=== PATIENT | female | born 1950 | race Caucasian/White ===

== ENCOUNTER 2017-01-27 05:38 | Inpatient (IN) | payer OTHER ==
[~2017-01-27] VITALS: Ht 160 cm; Wt 74.2 kg
[~2017-01-27 05:38] MED LIST: AMLODIPINE-BEN1 EACH; ASPIRIN81 M2 PO; BENICAR40 MG; BYSTOLIC20 MG PO; CALCITRIOL0.25 MCG PO; CALCIUM 500 +1 EACH PO; DICLOFENAC SOD100 MG; DIOVAN HCT 31 TABLE1 PO; FENOFIBRATE160 M1 PO; FLONASE16 G1 BOTH NARES; HYDROCHLOROTHIA25 MG PO; LEVOTHYROXINE125 MCG PO; LEVOTHYROXINE150 MCG; LOSARTAN POTAS100 MG PO; NITROSTAT0.4 MG SL; NORCO 5/3251 TABLET PO; NORVASC5 MG PO; PRAMIPEXOLE0.125 MG; PREMARIN0.3 MG PO; PREMARIN0.625 MG; TRICOR145 MG; TUMS500 MG PO; TYLENOL ARTHRI650 MG PO; VOLTAREN75 MG PO; ZETIA10 MG
[2017-01-27 06:20] VITALS: BP 164/70
[2017-01-27 16:30] VITALS: BP 132/62
[2017-01-27 19:39] VITALS: BP 115/59
[2017-01-28 00:36] VITALS: BP 116/55
[2017-01-28 08:17] VITALS: BP 121/60
[2017-01-28 10:59] LABS: HEMATOCRIT 28.3 % (36.0-46.0)
[2017-01-28] MEDS ORDERED: IRON325 MG PO (11:02)
[2017-01-28 11:10] LABS: ANION GAP 9 MEQ/L (2-14); CHLORIDE 100 MEQ/L (99-109); GFR ESTIMATE (CALCULATED) > 59 mL/min/; GLUCOSE 116 mg/dL (70-99); POTASSIUM 3.4 MEQ/L (3.7-5.4); SAMPLE HEMOLYSIS CHECK 0; SAMPLE ICTERIC CHECK 0; SAMPLE LIPEMIA CHECK 0; SODIUM 141 MEQ/L (136-147); UREA NITROGEN (BUN) 19 mg/dL (9-23)
[2017-01-28 12:30] VITALS: BP 110/53
[2017-01-28 16:00] VITALS: BP 141/62
[2017-01-28 19:24] VITALS: BP 131/60
[2017-01-28 23:30] VITALS: BP 142/63
[2017-01-29 08:37] VITALS: BP 123/60
[2017-01-29] MEDS ORDERED: TYLENOL REGULA325 MG PO (09:06)
[2017-01-29] MEDS ORDERED: OXYCODONE HCL5 MG PO (09:07)
[2017-01-29] MEDS ORDERED: XARELTO10 MG PO (09:07)
[2017-01-29 11:05] LABS: HEMATOCRIT 29.4 % (36.0-46.0); MCV 88.6 FL (83-99)
== END 2017-01-29 14:29 | disposition home health service (06) | DRG 470 ==
LOC: 2SOUTH 05:38 → 3EAST 05:38 → 2SOUTH 07:55 → 3EAST 16:21
PROVIDERS: Physician Assistant
PROC: 0SRB04A Replacement of Left Hip Joint with Ceramic on Polyethylene Synthetic Substitute, Uncemented, Open Approach (ICD-10-PCS; principal; 2017-01-27)
DX: M16.12 Unilateral primary osteoarthritis, left hip (principal); J30.2 Other seasonal allergic rhinitis; G47.33 Obstructive sleep apnea (adult) (pediatric); I10 Essential (primary) hypertension; E78.2 Mixed hyperlipidemia; Z91.19 Patient's noncompliance with other medical treatment and regimen; E89.0 Postprocedural hypothyroidism; E55.9 Vitamin D deficiency, unspecified; I35.0 Nonrheumatic aortic (valve) stenosis; I36.1 Nonrheumatic tricuspid (valve) insufficiency; I34.0 Nonrheumatic mitral (valve) insufficiency; M54.32 Sciatica, left side; M54.31 Sciatica, right side; G25.81 Restless legs syndrome; Z87.891 Personal history of nicotine dependence; Z91.040 Latex allergy status; Z91.012 Allergy to eggs; Z88.2 Allergy status to sulfonamides; Z91.013 Allergy to seafood; Z91.041 Radiographic dye allergy status; Z82.49 Family history of ischemic heart disease and other diseases of the circulatory system; Z83.3 Family history of diabetes mellitus; Z82.61 Family history of arthritis; Z80.9 Family history of malignant neoplasm, unspecified
CPT/HCPCS: 80048; 85014; 85018; 97530 GP; J0131; J0690; J1100; J1885; J2250; J2405; J7050; J7120; S0020

== ENCOUNTER 2018-05-31 22:10 | Inpatient (IN) | payer OTHER ==
[~2018-05-31] VITALS: Ht 160 cm; Wt 68.0 kg
[~2018-05-31 22:10] MED LIST changes: +IRON325 MG PO; +OXYCODONE HCL5 MG PO; +TYLENOL REGULA325 MG PO; +WOMEN'S DAILY1 EAC5 PO; +XARELTO10 MG PO; -ZETIA10 MG; +ZETIA10 MG PO
[2018-06-01 06:44] VITALS: BP 178/101
[2018-06-01 11:48] VITALS: BP 151/64
[2018-06-01 15:46] VITALS: BP 114/57
[2018-06-01 20:11] VITALS: BP 133/63
[2018-06-02] VITALS: BP 126/61
[2018-06-02 04:10] VITALS: BP 129/62
[2018-06-02 06:55] LABS: CHLORIDE 101 MEQ/L (99-109); CREATININE 0.9 MG/DL (0.6-1.3); GFR ESTIMATE (CALCULATED) > 59 mL/min/; GLUCOSE 104 mg/dL (70-99); POTASSIUM 4.1 MEQ/L (3.7-5.4); SODIUM 140 MEQ/L (136-147); UREA NITROGEN (BUN) 16 mg/dL (9-23)
[2018-06-02 08:00] VITALS: BP 116/57
[2018-06-02 12:10] VITALS: BP 146/65
[2018-06-02 15:55] VITALS: BP 134/61
[2018-06-02 20:20] VITALS: BP 158/70
[2018-06-03 00:24] VITALS: BP 159/65
[2018-06-03 04:05] VITALS: BP 146/22
[2018-06-03 07:47] VITALS: BP 132/61
[2018-06-03] MEDS ORDERED: BENADRYL25 MG PO (10:07)
[2018-06-03] MEDS ORDERED: SENNA PLUS TAB1 EACH PO (10:10)
[2018-06-03] MEDS ORDERED: OXYCODONE HCL5 MG PO (10:12)
[2018-06-03] MEDS ORDERED: Salonpas 4% Patch TD (10:12)
[2018-06-03] MEDS ORDERED: ASPIR-LOW81 MG PO (10:12)
[2018-06-03] MEDS ORDERED: GABAPENTIN100 MG PO (10:12)
[2018-06-03 12:30] VITALS: BP 132/85
== END 2018-06-03 14:29 | DRG 470 ==
LOC: ENRESERV 22:10 → 3WEST 06-01 05:28 → 2SOUTH 06-01 05:28 → 3WEST 06-01 11:32 → 2SOUTH 06-01 15:14 → 3WEST 06-03 14:29
PROVIDERS: Orthopaedic Surgery
PROC: 0SRC0J9 Replacement of Right Knee Joint with Synthetic Substitute, Cemented, Open Approach (ICD-10-PCS; principal; 2018-06-01)
DX: M17.11 Unilateral primary osteoarthritis, right knee (principal); Z87.828 Personal history of other (healed) physical injury and trauma; I10 Essential (primary) hypertension; G47.30 Sleep apnea, unspecified; E07.9 Disorder of thyroid, unspecified; E78.70 Disorder of bile acid and cholesterol metabolism, unspecified
CPT/HCPCS: 80048; 82948; C1713; J0131; J0330; J0690; J1885; J2001; J2250; J2795; J3010; J3475; J7050; J7120; Q0175; S0020